=== PATIENT | male | born 1995 | race American Indian/Alaskan Native ===

== ENCOUNTER 2020-04-11 05:19 | Emergency (ER) | payer OTHER ==
[2020-04-11 06:19] LABS: Basophils # (Auto) 0.1 K/mm3 (0.0-0.1); Basophils % (Auto) 0.5 % (0.0-1.8); Eosinophils % (Auto) 0.3 % (0.0-4.3); Hematocrit 47.3 % (35.5-45.6); Hemoglobin 15.9 gm/dl (11.8-15.2); Lymphocytes # (Auto) 1.1 K/mm3 (1.2-5.4); Lymphocytes % (Auto) 6.2 % (13.4-35.0); Mean Corpuscular HGB Conc 34 % (32-34); Mean Corpuscular Volume 91 fl (84-94); Monocytes # (Auto) 1.1 K/mm3 (0.0-0.8); Monocytes % (Auto) 6.4 % (0.0-7.3); Platelet Count 190 K/mm3 (140-440); Red Blood Count 5.19 M/mm3 (3.65-5.03); Red Cell Distribution Width 13.3 % (13.2-15.2)
[2020-04-11] MEDS ORDERED: SODIUM CHLORIDE 0.9% 1000 ML 1,000 ML IV ONE (06:23)
[2020-04-11] MEDS ORDERED: SODIUM CHLORIDE 0.9% 1000 ML 1,000 ML ONE (06:25)
[2020-04-11 06:29] LABS: Calcium 9.2 mg/dL (8.4-10.2)
--- NOTE | 2020-04-11 06:29 | Emergency Department Report ---
HPI - General Chief Complaint: Overdose PUI?: No Time Seen by Provider: 04/11/20 06:16 - HPI HPI: Room 19 The patient is a 24-year-old male present with a chief complaint of overdose. Patient states he remembers drinking alcohol and smoking marijuana and his next memory is of EMS taking him out of the house. Per EMS the patient was found unresponsive by family. Family performed chest compressions. When EMS arrived on scene the patient had a SPO2 of 53% on room air. Patient was placed on a nonrebreather and administered Narcan 0.4 mg. The patient came to still appears drowsy. Patient currently denies complaints except for feeling drowsy ED Past Medical Hx - Past Medical History Previous Medical History?: No - Surgical History Past Surgical History?: No - Family History Family history: no significant - Social History Smoking Status: Current Every Day Smoker (1/2 pack/day) Substance Use Type: Alcohol (Daily), Marijuana ED Review of Systems ROS: Stated complaint: OVERDOSE Other details as noted in HPI Constitutional: no symptoms reported Respiratory: no symptoms reported Endocrine: no symptoms reported Neurological: other (Drowsy) Physical Exam - Physical Exam Vital Signs: Vital Signs 04/11/20 04/11/20 05:23 05:39 Pulse Rate 108 H Respiratory 11 L 14 Rate Blood Pressure 156/87 [Left] O2 Sat by Pulse 98 99 Oximetry Physical Exam: GENERAL: The patient is well-developed well-nourished male lying on stretcher not appearing to be in acute distress. [] HEENT: Normocephalic. Atraumatic. Extraocular motions are intact. Patient has moist mucous membranes. NECK: Supple. Trachea midline CHEST/LUNGS: Clear to auscultation. There is no respiratory distress noted. HEART/CARDIOVASCULAR: Regular. There is tachycardia. There is no gallop rub or murmur. ABDOMEN: Abdomen is soft, nontender. Patient has normal bowel sounds. There is no abdominal distention. SKIN: There is no rash. There is no edema. There is no diaphoresis. NEURO: The patient is awake but drowsy. The patient is oriented. The patient is cooperative. The patient has no focal neurologic deficits. The patient has normal speech MUSCULOSKELETAL: There is no evidence of acute injury. ED Course Vital Signs 04/11/20 04/11/20 05:23 05:39 Pulse Rate 108 H Respiratory 11 L 14 Rate Blood Pressure 156/87 [Left] O2 Sat by Pulse 98 99 Oximetry - Reevaluation(s) Reevaluation #1: 04/11/20 13:13 Patient alert and oriented ED Medical Decision Making - Lab Data Result diagrams: 04/11/20 05:56 04/11/20 05:56 Laboratory Tests 04/11/20 04/11/20 04/11/20 05:56 05:56 05:56 WBC RBC Hgb Hct MCV MCH MCHC RDW Plt Count Lymph % (Auto) [place] % (Auto) Eos % (Auto) Baso % (Auto) Lymph # [place] # Eos # Baso # Seg Neutrophils % Seg Neutrophils # ABG pH ABG pCO2 ABG pO2 ABG HCO3 ABG O2 Saturation ABG O2 Content ABG Base Excess ABG Hemoglobin ABG Carboxyhemoglobin ABG Methemoglobin Oxyhemoglobin FiO2 Sodium 139 Potassium 4.1 Chloride 99.2 Carbon Dioxide 27 Anion Gap 17 BUN 12 Creatinine 1.8 H Estimated GFR 56 BUN/Creatinine Ratio 7 Glucose 176 H Calcium 9.2 Total Creatine Kinase CK-MB (CK-2) CK-MB (CK-2) Rel Index Troponin T Urine Color Urine Turbidity Urine pH Ur Specific [place] Urine Protein Urine Glucose (UA) Urine Ketones Urine Blood Urine Nitrite Urine Bilirubin Urine Urobilinogen Ur Leukocyte Esterase Urine WBC (Auto) Urine RBC (Auto) U Epithel Cells (Auto) Urine Bacteria (Auto) Urine Mucus Salicylates < 0.3 L Urine Opiates Screen Urine Methadone Screen Acetaminophen 5.0 L Ur Barbiturates Screen Ur Phencyclidine Scrn Ur Amphetamines Screen U Benzodiazepines Scrn Urine Cocaine Screen U Marijuana (THC) Screen Drugs of Abuse Note Plasma/Serum Alcohol 04/11/20 04/11/20 04/11/20 05:56 05:56 07:03 WBC 17.4 H RBC 5.19 H Hgb 15.9 H Hct 47.3 H MCV 91 MCH 31 MCHC 34 RDW 13.3 Plt Count 190 Lymph % (Auto) 6.2 L [place] % (Auto) 6.4 Eos % (Auto) 0.3 Baso % (Auto) 0.5 Lymph # 1.1 L [place] # 1.1 H Eos # 0.0 Baso # 0.1 Seg Neutrophils % 86.6 H Seg Neutrophils # 15.1 H ABG pH ABG pCO2 ABG pO2 ABG HCO3 ABG O2 Saturation ABG O2 Content ABG Base Excess ABG Hemoglobin ABG Carboxyhemoglobin ABG Methemoglobin Oxyhemoglobin FiO2 Sodium Potassium Chloride Carbon Dioxide Anion Gap BUN Creatinine Estimated GFR BUN/Creatinine Ratio Glucose Calcium Total Creatine Kinase 120 CK-MB (CK-2) 1.1 CK-MB (CK-2) Rel Index 0.9 Troponin T < 0.010 Urine Color Urine Turbidity Urine pH Ur Specific [place] Urine Protein Urine Glucose (UA) Urine Ketones Urine Blood Urine Nitrite Urine Bilirubin Urine Urobilinogen Ur Leukocyte Esterase Urine WBC (Auto) Urine RBC (Auto) U Epithel Cells (Auto) Urine Bacteria (Auto) Urine Mucus Salicylates Urine Opiates Screen Urine Methadone Screen Acetaminophen Ur Barbiturates Screen Ur Phencyclidine Scrn Ur Amphetamines Screen U Benzodiazepines Scrn Urine Cocaine Screen U Marijuana (THC) Screen Drugs of Abuse Note Plasma/Serum Alcohol < 0.01 04/11/20 04/11/20 04/11/20 07:11 07:11 11:43 WBC RBC Hgb Hct MCV MCH MCHC RDW Plt Count Lymph % (Auto) [place] % (Auto) Eos % (Auto) Baso % (Auto) Lymph # [place] # Eos # Baso # Seg Neutrophils % Seg Neutrophils # ABG pH 7.326 L ABG pCO2 55.1 ABG pO2 63.7 L ABG HCO3 28.2 H ABG O2 Saturation 94.5 L ABG O2 Content 18.9 ABG Base Excess 0.9 ABG Hemoglobin 15.4 ABG Carboxyhemoglobin 7.2 H ABG Methemoglobin 0.6 Oxyhemoglobin 87.2 L FiO2 21 Sodium Potassium Chloride Carbon Dioxide Anion Gap BUN Creatinine Estimated GFR BUN/Creatinine Ratio Glucose Calcium Total Creatine Kinase CK-MB (CK-2) CK-MB (CK-2) Rel Index Troponin T Urine Color Yellow Urine Turbidity Slightly-cloudy Urine pH 5.0 Ur Specific [place] 1.010 Urine Protein 30 mg/dl Urine Glucose (UA) 150 Urine Ketones Neg Urine Blood Sm Urine Nitrite Neg Urine Bilirubin Neg Urine Urobilinogen < 2.0 Ur Leukocyte Esterase Neg Urine WBC (Auto) 4.0 Urine RBC (Auto) 6.0 U Epithel Cells (Auto) < 1.0 Urine Bacteria (Auto) 1+ Urine Mucus Few Salicylates Urine Opiates Screen Positive Urine Methadone Screen Negative Acetaminophen Ur Barbiturates Screen Negative Ur Phencyclidine Scrn Negative Ur Amphetamines Screen Negative U Benzodiazepines Scrn Negative Urine Cocaine Screen Positive U Marijuana (THC) Screen Positive Drugs of Abuse Note Disclamer Plasma/Serum Alcohol - EKG Data -: EKG Interpreted by Me EKG shows normal: sinus rhythm Rate: tachycardia (111 bpm) - EKG Data When compared to previous EKG there are: previous EKG unavailable Interpretation: other (No ischemic changes seen) - Radiology Data Radiology results: report reviewed (Chest x-ray), image reviewed (Chest x-ray) interpreted by me: Chest x-ray-no focal infiltrates, no pneumothorax, no foreign body Findings [facility] [address] [place] [address] XRay Report Signed Patient: SATISH CASTELLANOS MR#: [id number] 7 : 1995 Acct:[id number] Age/Sex: 24 / M ADM Date: 04/11/20 Loc: ED Attending Dr: Ordering Physician: NEETU BENNETT MD Date of Service: 04/11/20 Procedure(s): XR chest 1V ap Accession Number(s): [id number] cc: NEETU BENNETT MD Fluoro Time In Minutes: CHEST 1 VIEW INDICATION / CLINICAL INFORMATION: Status post overdose, unresponsive. COMPARISON: None available. FINDINGS: SUPPORT DEVICES: None. HEART / MEDIASTINUM: No significant abnormality. LUNGS / PLEURA: No significant pulmonary or pleural abnormality. No pneumothorax. ADDITIONAL FINDINGS: No significant additional findings. IMPRESSION: 1. No acute findings. Signer Name: Vinita Wyman MD Signed: 04/11/2020 6:44 AM Workstation Name: [id number] Transcribed By: JR Dictated By: Vinita Wyman MD Electronically Authenticated By: Vinita Wyman MD Signed Date/Time: 04/11/20643 DD/ 3 TD/TT: - Differential Diagnosis Polysubstance abuse, opiate overdose Critical care attestation.: If time is entered above; I have spent that time in minutes in the direct care of this critically ill patient, excluding procedure time. ED Disposition Clinical Impression: Polysubstance abuse, Opiate overdose Disposition: DC-01 TO HOME OR SELFCARE Is pt being admited?: No Does the pt Need Aspirin: No Condition: Stable Instructions: Polysubstance Abuse (ED) Additional Instructions: Return to the emergency department should you develop worsening symptoms, inability to tolerate food or liquids, high fever or any other concerns Referrals: PRIMARY CARE, [Primary Care Provider] - 3-5 Days [facility] [Provider Group] - 3-5 Days Time of Disposition: 13:14
--- NOTE | 2020-04-11 06:48 | XRay Report ---
CHEST 1 VIEW INDICATION / CLINICAL INFORMATION: Status post overdose, unresponsive. COMPARISON: None available. FINDINGS: SUPPORT DEVICES: None. HEART / MEDIASTINUM: No significant abnormality. LUNGS / PLEURA: No significant pulmonary or pleural abnormality. No pneumothorax. ADDITIONAL FINDINGS: No significant additional findings. IMPRESSION: 1. No acute findings. Signer Name: Vinita Wyman MD Signed: 04/11/2020 6:44 AM Workstation Name: [id number]
[2020-04-11 07:20] LABS: Creatine Kinase MB 1.1 ng/mL (0.0-4.0)
[2020-04-11 07:30] LABS: Bacteria,Urine 1+ /HPF (Negative); Bilirubin,Urine NEG (Negative); Blood,Urine SM (Negative); Color,Urine Yellow (Yellow); Mucus,Urine FEW /HPF; Urobilinogen,Urine < 2.0 mg/dL (<2.0)
[2020-04-11 07:31] LABS: Amphetamine Screen,Urine Negative; Benzodiazepines Screen,Urine Negative; Methadone Screen,Urine Negative
[2020-04-11 07:57] LABS: Cannabinoid Screen,Urine Positive; Cocaine Screen,Urine Positive; Opiate Screen,Urine Positive
[2020-04-11 11:49] LABS: ABG Base Excess 0.9 mmol/L (-2.0-3.0); ABG HCO3 28.2 mmol/L (20.0-26.0); ABG Methemoglobin 0.6 % (0.0-1.5); ABG Oxygen Saturation 94.5 % (95.0-99.0); ABG PCO2 55.1 mm Hg; ABG PH 7.326 pH Units (7.350-7.450); ABG PO2 63.7 mm Hg (80.0-90.0)
[2020-04-11 13:47] VITALS: BP 132/78
== END 2020-04-11 13:47 | disposition home or self-care (01) ==
LOC: ED 05:19
DX: T40.601A Poisoning by unspecified narcotics, accidental (unintentional), initial encounter (principal); F19.10 Other psychoactive substance abuse, uncomplicated; F17.200 Nicotine dependence, unspecified, uncomplicated; F12.10 Cannabis abuse, uncomplicated
CPT/HCPCS: 36415; 71045; 80048; 80307; 81001; 82550; 82553; 82803; 84484; 85025; 93005; 96360; 99285; J7030; 80320; G0480